=== PATIENT | male | born 1965 | race Caucasian/White ===

== ENCOUNTER 2018-11-14 08:29 | Emergency (ER) | payer SELFPAY ==
[~2018-11-14] VITALS: Ht 165.1 cm; Wt 63.0 kg
[2018-11-14 09:01] VITALS: BP 127/78
[2018-11-14 10:03] LABS: BASOPHILS % 0.9 % (0.0-2.0); HEMATOCRIT. 38.1 % (42.0-52.0); HEMOGLOBIN. 13.1 g/dL (14.0-18.0); LYMPHOCYTES % 10.5 % (20.0-50.0); MEAN CORPUSCULAR HEMOGLOBIN 33.5 pg (28.0-32.0); MEAN CORPUSCULAR VOLUME 96.8 fL (80.0-94.0); MEAN PLATELET VOLUME 7.4 fl (7.4-10.4); MONOCYTES % 14.1 % (2.0-8.0); NEUTROPHILS % 74.5 % (40.0-76.0); PLATELET 256 x1000/uL (130-400); RED BLOOD CELL COUNT 3.93 mill/uL (4.7-6.1); RED CELL DISTRIBUTION WIDTH 13.7 % (11.6-14.6)
[2018-11-14 10:04] LABS: CHLORIDE 96 mEq/L (98-107)
[2018-11-14 10:05] LABS: PROTHROMBIN TIME 9.9 sec (9.6-11.0)
== END 2018-11-14 11:00 | disposition home or self-care (01) ==
LOC: ER 08:29
DX: R04.0 Epistaxis (principal); S00.83XA Contusion of other part of head, initial encounter; V19.3XXA Pedal cyclist (driver) (passenger) injured in unspecified nontraffic accident, initial encounter; Y93.89 Activity, other specified; Y92.89 Other specified places as the place of occurrence of the external cause
CPT/HCPCS: 36415; 70160; 80048; 99284

== ENCOUNTER 2020-03-20 11:28 | Emergency (ER) | payer SELFPAY ==
[~2020-03-20] VITALS: Ht 172.7 cm; Wt 85.0 kg
[2020-03-20 11:34] VITALS: BP 130/80
== END 2020-03-20 11:55 | disposition left against medical advice (07) ==
LOC: ER 11:28
DX: R05 Cough (principal); Z53.21 Procedure and treatment not carried out due to patient leaving prior to being seen by health care provider